=== PATIENT | female | born 1995 | race American Indian/Alaskan Native ===

== ENCOUNTER 2019-07-05 09:44 | Emergency (ER) | payer SELFPAY ==
[2019-07-05 10:05] VITALS: BP 123/72
--- NOTE | 2019-07-05 10:35 | Emergency Department Report ---
Chief Complaint: Fall Stated Complaint: FALL/LOWER BACK/(L)ARM PAIN Time Seen by Provider: 07/05/19 10:17 - HPI History of Present Illness: Ms. Orona is a very pleasant 23-year-old female who fell down 4 steps. She has mild back pain as a result. She is ambulatory without difficulty. She accompanied her young daughter to the emergency department. She only desired to have her daughter evaluated in the emergency department. Medical screening exam performed and completed. No acute emergent condition at this time. - Exam Vital Signs: Vital Signs 07/05/19 10:02 Temperature 98.5 F Pulse Rate 86 Respiratory 16 Rate Blood Pressure 123/72 [Left] O2 Sat by Pulse 100 Oximetry MSE screening note: Focused history and physical exam performed. Due to findings the following was ordered: ED Disposition for MSE Clinical Impression: Encounter for medical screening examination Disposition: Z-07 MED SCREENING EXAM-LEFT Is pt being admited?: No Does the pt Need Aspirin: No Condition: Stable
== END 2019-07-05 10:43 | disposition left against medical advice (07) ==
LOC: ED 09:44
DX: M54.9 Dorsalgia, unspecified (principal); W19.XXXA Unspecified fall, initial encounter; Y93.89 Activity, other specified; Y92.89 Other specified places as the place of occurrence of the external cause; Y99.8 Other external cause status